=== PATIENT | female | born 1970 | race Caucasian/White ===

== ENCOUNTER → 2020-07-22 11:15 | Outpatient (BNVA) | payer BC, SELFPAY | PROVIDERS: Family Provider Family Medicine; PCP Family Medicine; Visit Provider Nurse Practitioner Family | DX: Z11.59 Encounter for screening for other viral diseases (principal); Z20.828 Contact with and (suspected) exposure to other viral communicable diseases; J06.9 Acute upper respiratory infection, unspecified | CPT/HCPCS: 87635 ==

== ENCOUNTER 2021-11-10 13:43 | Outpatient (CLI) | payer OTHER, SELFPAY ==
--- NOTE | 2021-11-10 14:00 | MM_ITS ---
WS: [id number] BILATERAL DIGITAL SCREENING MAMMOGRAPHY WITH CAD CLINICAL INFORMATION: routine screen HISTORY: Screening mammogram. No current complaints. COMPARISON: . TECHNIQUE: Bilateral CC and MLO views. FINDINGS: The breasts are composed of heterogeneous fibroglandular density tissue, which can limit the detectio n of small underlying mass lesions. A few incidental punctate and lucent centered calcifications. Pre viously described right breast cyst has decreased in size. No suspicious mass, asymmetry, calcificati ons, or architectural distortion. No evidence of malignancy. MM/[id number] IMPRESSION: BI-RADS: 2-Benign FOLLOW UP: 1 Year Follow-up Recommend return to annual screening mammography.
== END 2021-11-10 13:44 | disposition home or self-care (01) ==
LOC: RADSHAW 13:48
PROVIDERS: PCP Family Medicine Adult Medicine; Visit Provider Family Medicine Adult Medicine
DX: Z12.31 Encounter for screening mammogram for malignant neoplasm of breast (principal)
CPT/HCPCS: 77067

== ENCOUNTER 2022-12-17 08:33 | Outpatient (CLI) | payer OTHER, SELFPAY ==
--- NOTE | 2022-12-17 08:41 | MM_ITS ---
WS: [id number] SCREENING DIGITAL BREAST TOMOSYNTHESIS MAMMOGRAM WITH CAD HISTORY: SCREENING COMPARISON: 11/10/2021, 06/20/2018 Bilateral CC and MLO with tomosynthesis and synthetic mammography submitted. Computer aided detection analyzed. Breast composition: The breasts are heterogeneously dense, which may obscure small masses. Seen best on the RIGHT MLO projection is increased density and nodularity in the central posterior RIGHT breast . This may not be included on the CC projection due to its far posterior position. Additional partial ly obscured asymmetry in the posterior LEFT breast. Cyst was noted is location on prior imaging studi es. MM/[id number] IMPRESSION: BI-RADS: 0-Incomplete: Need additional imaging evaluation FOLLOW UP: Need Additional Imaging RIGHT breast: Spot compression views (exaggerated lateral CC and MLO). True ML. Ultrasound to follow if abnormality persists. LEFT breast: Ultrasound posterior LEFT breast against the chest wall. Central a nd inferior to the nipple.
== END 2022-12-17 08:34 | disposition home or self-care (01) ==
PROVIDERS: PCP Family Medicine; Visit Provider Family Medicine
DX: Z12.31 Encounter for screening mammogram for malignant neoplasm of breast (principal); N64.89 Other specified disorders of breast
CPT/HCPCS: 77063; 77067

== ENCOUNTER 2023-01-15 12:22 | Outpatient (CLI) | payer OTHER, SELFPAY ==
--- NOTE | 2023-01-15 12:36 | MM_ITS ---
WS: [id number] ADDITIONAL VIEWS RIGHT MAMMOGRAM WITH DIGITAL BREAST TOMOSYNTHESIS. Bilateral BREAST ULTRASOUND, limited HISTORY: ABNORMAL MAMMO COMPARISON: 12/17/2022, 11/10/2021, prior ultrasound 06/20/2018 and 12/02/2015 RIGHT MAMMOGRAM: Spot compression views and true ML with digital breast tomosynthesis and SM. Asymmetries persist with additional imaging of the RIGHT breast. Very dense fibroglandular tissue wit h some distortion. Ultrasound will be performed. Bilateral BREAST ULTRASOUND 2-D and color Doppler imaging submitted. RIGHT: There are numerous cysts within the RIGHT breast which correspond to the findings on mammograp hy. Some of these are simple cysts and others are minimally complex cyst. After reviewing the prior s tudy from 2016 these are all relatively stable. No area of shadowing or solid mass of concern. LEFT breast ultrasound, limited. Numerous simple cysts are identified within the LEFT breast. The lar gest cyst measures 2.1 x 1.6 x 2.0 cm. No solid mass. MM/[id number] IMPRESSION: BI-RADS: 2-Benign FOLLOW UP: 1 Year Follow-up Bilateral breast masses and asymmetries correspond to numerous cysts.
== END 2023-01-15 12:23 | disposition home or self-care (01) ==
LOC: RAD 12:26
PROVIDERS: PCP Family Medicine; Visit Provider Family Medicine
DX: R92.8 Other abnormal and inconclusive findings on diagnostic imaging of breast (principal)
CPT/HCPCS: 76642; 77061; G0279